=== PATIENT | male | born 1985 | race African-American/Black ===

== ENCOUNTER 2022-01-19 05:31 | Emergency (ER) | payer OTHER, BC ==
[2022-01-19 05:45] VITALS: TEMP 98; BMI 30.3
[2022-01-19] MEDS ORDERED: ACETAMINOPHEN 500 MG TABLET (FP) PO ONE (06:13)
[2022-01-19] MEDS ORDERED: ACETAMINOPHEN 325 MG TABLET (FP) ONE (06:17)
[2022-01-19] MEDS ORDERED: METOCLOPRAMIDE HCL INJECTION 10 MG/2 ML VIAL IM ONE (07:41)
[2022-01-19] MEDS ORDERED: METOCLOPRAMIDE HCL INJECTION 10 MG/2 ML VIAL ONE (07:57)
[2022-01-19] MEDS ORDERED: KETOROLAC TROMETHAMINE 30 MG/1 ML VIAL IM ONE (07:57)
[2022-01-19 10:46] VITALS: BP 128/69; PULSE 78
== END 2022-01-19 10:45 | disposition home or self-care (01) ==
LOC: JER 05:31
DX: G44.319 Acute post-traumatic headache, not intractable (principal); V49.40XA Driver injured in collision with unspecified motor vehicles in traffic accident, initial encounter
CPT/HCPCS: 70450-TC; 72125-TC; 72128-TC; 99284-25